=== PATIENT | female | born 1980 | race Asian ===

== ENCOUNTER 2022-05-01 14:59 | Emergency (ER) | payer OTHER ==
[~2022-05-01] VITALS: Ht 165.1 cm; Wt 56.1 kg
[2022-05-01] MEDS ORDERED: DELESTROGE10 MG/1 ML IM (15:26)
[2022-05-01] MEDS ORDERED: PROGESTERO50 MG/1 M1 IM (15:27)
[2022-05-01] MEDS ORDERED: PROGESTERONE200 MG PV (15:28)
[2022-05-01] MEDS ORDERED: VITAMIN D325 MCG PO (15:28)
[2022-05-01] MEDS ORDERED: BAYER CHEWABLE81 MG PO (15:28)
--- NOTE | 2022-05-02 19:29 | EKG ---
[facility] [address] [place], [place] [address] Signed Normal sinus rhythm Nonspecific T wave abnormality Abnormal ECG No previous ECGs available Confirmed by Yusra Larson MD () on 05/02/2022 7:29:10 PM Electronically Signed By: YUSRA LARSON MD 05/02/221928 PATIENT NAME: WILLIAM GÓMEZ NAHEED Electrocardiogram DATE OF : 84 PHYSICIAN: YUSRA LARSON MD REPORT #: [id number] REPORT IS CONFIDENTIAL AND NOT TO BE RELEASED WITHOUT AUTHORIZATION
== END 2022-05-01 17:10 | disposition home or self-care (01) ==
LOC: ED 14:59
DX: O99.891 Other specified diseases and conditions complicating pregnancy (principal); R06.00 Dyspnea, unspecified; Z3A.08 8 weeks gestation of pregnancy; Z88.5 Allergy status to narcotic agent; Z79.899 Other long term (current) drug therapy; Z79.82 Long term (current) use of aspirin; Z20.822 Contact with and (suspected) exposure to COVID-19
CPT/HCPCS: 36415; 80053; 83735; 83880; 84484; 85025; 85379; 87502; 93005; 93010; 99285-25; C9803; U0003